=== PATIENT | male | born 1985 | race Caucasian/White ===

== ENCOUNTER 2016-09-28 10:21 | Emergency (ER) | payer SELFPAY ==
[2016-09-28] MEDS ORDERED: IBUPROFEN 800 MG TABLET PO ONE (10:32)
--- NOTE | 2016-09-28 10:32 | ER Document Report ---
ED Medical Screen (RME) - General Stated Complaint: TOOTH PAIN Time seen by provider: 10:30 Mode of Arrival: Ambulatory Information source: Patient Notes: 31-year-old male presents to ED for a toothache right lower jaw for the last 2 days to this #31. - HPI Onset: Other Onset/Duration: Gradual - 2 days Quality of pain: Achy, Throbbing Severity: Severe Pain Level: 5 Associated Symptoms: Other - Dental pain Exacerbated by: Food Relieved by: Denies Similar symptoms previously: Yes Recently seen / treated by doctor: No - Related Data Smoking: Less than 1 pack/day Frequency of alcohol use: Occasional Drug Abuse: None Physical Exam - Vital signs Vitals: Temp Pulse Resp BP Pulse Ox 98.4 F 118 H 18 140/62 H 96 09/28/16 10:09/28/16 10:09/28/16 10:09/28/16 10:09/28/16 10:26 Course - Vital Signs Vital signs: Temp Pulse Resp BP Pulse Ox 98.4 F 118 H 18 140/62 H 96 09/28/16 10:09/28/16 10:09/28/16 10:09/28/16 10:09/28/16 10:26
[2016-09-28] MEDS ORDERED: BUPIVACAINE HCL 0.5 % INJ/PF 30 ML SDV INJ ONE (10:45)
[2016-09-28] MEDS ORDERED: LIDOCAINE 1% INJ-PF (10 MG/ML) 30 ML SDV INJ ONE (10:45)
--- NOTE | 2016-09-28 10:50 | ER Document Report ---
[id number] Mode of Arrival: Ambulatory Information source: Patient Notes: 31-year-old male presents with complaints of dental pain and facial swelling. Patient notes that things been ongoing for 1 week, denies any fevers or chills admits to pain and chewing. Patient noticed swelling of his gums today. Denies any previous abscesses. Denies any known allergies TRAVEL OUTSIDE OF THE [place] IN LAST 30 DAYS: No - HPI Onset: Last week Onset/Duration: Persistent Quality of pain: Achy Severity: Mild Pain Level: 1 Associated symptoms: Other Exacerbated by: Denies Relieved by: Denies Similar symptoms previously: No Recently seen / treated by doctor: No - Related Data Allergies/Adverse Reactions: No Known Allergies Allergy (Verified 09/28/16 10:32) Past Medical History - General Information source: Patient - Social History Smoking Status: Current Every Day Smoker Cigarette use (# per day): Yes Chew tobacco use (# tins/day): Yes Smoking Education Provided: Yes - Patient counselled regarding cessation for 4 minutes Frequency of alcohol use: Occasional Drug Abuse: None Family History: Reviewed & Not Pertinent Patient has suicidal ideation: No Patient has homicidal ideation: No Renal/ Medical History: Denies: Hx Peritoneal Dialysis Review of Systems - Review of Systems Notes: REVIEW OF SYSTEMS: CONSTITUTIONAL : Denies fever, chills, or sweats. Denies recent illness. EENT: Admits to facial swelling dental pain CARDIOVASCULAR: Denies chest pain. Denies palpitations or racing or irregular heart beat. Denies ankle edema. RESPIRATORY: Denies cough, cold, or chest congestion. Denies shortness of breath, difficulty breathing, or wheezing. GASTROINTESTINAL: Denies abdominal pain or distention. Denies nausea, vomiting , or diarrhea. Denies blood in vomitus, stools, or per rectum. Denies black, tarry stools. Denies constipation. GENITOURINARY: Denies difficulty urinating, painful urination, burning, frequency, blood in urine, or discharge. MUSCULOSKELETAL: Denies back or neck pain or stiffness. Denies joint pain or swelling. SKIN: Denies rash, lesions or sores. HEMATOLOGIC : Denies easy bruising or bleeding. LYMPHATIC: Denies swollen, enlarged glands. NEUROLOGICAL: Denies confusion or altered mental status. Denies passing out or loss of consciousness. Denies dizziness or lightheadedness. Denies headache. Denies weakness or paralysis or loss of use of either side. Denies problems with gait or speech. Denies sensory loss, numbness, or tingling. Denies seizures. PSYCHIATRIC: Denies anxiety or stress. Denies depression, suicidal ideation, or homicidal ideation. ALL OTHER SYSTEMS REVIEWED AND NEGATIVE. Dictation was performed using [employer] voice recognition software PHYSICAL EXAMINATION: GENERAL: Well-appearing, well-nourished and in no acute distress. HEAD: Right inferior mandibular edema EYES: Pupils equal round extraocular movements intact, conjunctiva are normal. ENT: Poor dentition noted teeth #[id number], 28 is missing, there is edema fluctuant of both medial and lateral aspects of the gum around the area NECK: Normal range of motion LUNGS: No respiratory distress Musculoskeletal: Normal range of motion NEUROLOGICAL: Normal speech, normal gait. PSYCH: Normal mood, normal affect. SKIN: Warm, Dry, normal turgor, no rashes or lesions noted. Physical Exam - Vital signs Vitals: Temp Pulse Resp BP Pulse Ox 98.4 F 118 H 18 140/62 H 96 09/28/16 10:26 09/28/16 10:26 09/28/16 10:26 09/28/16 10:26 09/28/16 10:26 Course - Re-evaluation Re-evalutation: 09/28/16 10:49 After a dental block was performed area was incised and drained amount of pus was drained Patient will be placed on antibiotics and given follow-up with low cost dentistry After performing a Medical Screening Examination, I estimate there is LOW risk for a DEEP SPACE INFECTION (e.g., NEYDA'S ANGINA OR RETROPHARYNGEAL ABSCESS), MENINGITIS, INTRACRANIAL HEMORRHAGE, or AIRWAY COMPROMISE, thus I consider the discharge disposition reasonable. Also, there is no evidence or peritonitis, sepsis, or toxicity. The patient and I have discussed the diagnosis and risks, and we agree with discharging home with close follow-up with the understanding that symptoms and presentations can change. We also discussed returning to the Emergency Department immediately if new or worsening symptoms occur. We have discussed the symptoms which are most concerning (e.g., changing or worsening pain, trouble swallowing or breathing, neck stiffness or fever) that necessitate immediate return. 09/28/16 15:00 - Vital Signs Vital signs: Temp Pulse Resp BP Pulse Ox 98.4 F 120 H 18 130/75 H 97 09/28/16 10:26 09/28/16 11:54 09/28/16 11:54 09/28/16 11:54 09/28/16 11:54 Procedures - Incision and Drainage Right Lower Face Time completed: 10:50 Type: Simple Anesthetic type: 0.5% Bupivacaine mL's of anesthetic: 10 Blade size: 11 I&D procedure: Sterile dressing applied Incision Method: Incision made by scalpel Amount/type of drainage: moderate amount of pus - Additional Procedures inferior alveolar nerve block Time performed: 10:50 - using 10 cc of 0.5% sensorcaine with complete relief , no complication Discharge - Discharge Clinical Impression: Dental abscess, Encounter for smoking cessation counseling, dental pain Condition: Stable Disposition: HOME, SELF-CARE Instructions: Abscess ([facility]) Additional Instructions: Follow up with your dentist tomorrow for further care or return to the ED IMMEDIATELY if symptoms worsen or new concerns occur Prescriptions: Hydrocodone/Acetaminophen [[place] 5-325 mg Tablet] 1 tab PO Q6 #14 tablet Penicillin V Potassium [Penicillin Vk 500 mg Tablet] 500 mg PO Q6 #40 tablet
[2016-09-28 12:14] VITALS: BP 130/75
== END 2016-09-28 11:55 | disposition home or self-care (01) ==
LOC: ER 10:21
PROC: 3E0T3BZ Introduction of Anesthetic Agent into Peripheral Nerves and Plexi, Percutaneous Approach (ICD-10-PCS; principal; 2016-09-28)
PROC: 0H91XZZ Drainage of Face Skin, External Approach (ICD-10-PCS; 2016-09-28)
DX: K04.7 Periapical abscess without sinus (principal); K08.9 Disorder of teeth and supporting structures, unspecified; F17.210 Nicotine dependence, cigarettes, uncomplicated
CPT/HCPCS: 99282

== ENCOUNTER 2016-10-08 20:59 | Emergency (ER) | payer MEDICAID ==
--- NOTE | 2016-10-08 21:29 | ER Document Report ---
ED Medical Screen (RME) - General Stated Complaint: BACK PAIN Notes: Patient has chronic back pain for approximately one year I will this morning with a much more intense discomfort to the affected area. No new injury. I greeted and performed a rapid initial assessment of this patient. Comprehensive ED assessment and evaluation of the patient, analysis of test results and completion of the medical decision making process will be conducted by additional ED providers. TRAVEL OUTSIDE OF THE [place] IN LAST 30 DAYS: No - Related Data Allergies/Adverse Reactions: No Known Allergies Allergy (Verified 09/28/16 10:32) Past Medical History Renal/ Medical History: Denies: Hx Peritoneal Dialysis - Immunizations Hx Diphtheria, Pertussis, Tetanus Vaccination: Yes
[2016-10-08] MEDS ORDERED: OXYCODONE-ACETAMINOPHEN 5-325 MG TABLET PO ONE (23:37)
[2016-10-08] MEDS ORDERED: PREDNISONE 20 MG TABLET PO ONE (23:37)
--- NOTE | 2016-10-08 23:48 | ER Document Report ---
HPI - HPI Patient complains to provider of: lower back pain Pain Level: 5 Context: Patient is a 31-year-old male that comes emergency department for chief complaint of sharp right lower back pain with radiation down the back of the right leg. Patient states that he has had lower back pain before, he is even had MRIs of his back, he takes gabapentin and Flexeril. Patient denies any new injury, IV drug abuse, history of surgeries on the back, numbness, bowel or bladder incontinence. He denies any fever. Patient states pain was present when he woke this morning, he is unsure how he might have injured himself yesterday. Patient states he is new from [place], states that he is looking for a provider in this location. - DERM Skin Color: Normal Past Medical History - General Information source: Patient - Social History Smoking Status: Current Every Day Smoker Chew tobacco use (# tins/day): No Frequency of alcohol use: Rare Drug Abuse: None Lives with: Family Family History: Reviewed & Not Pertinent Patient has suicidal ideation: No Patient has homicidal ideation: No Renal/ Medical History: Denies: Hx Peritoneal Dialysis Musculoskeltal Medical History: Reports Hx Arthritis - Chronic lower back pain Surgical Hx: Negative - Immunizations Hx Diphtheria, Pertussis, Tetanus Vaccination: Yes Vertical Provider Document - CONSTITUTIONAL General Appearance: Mild Distress - Patient appears to be in some pain, Obese - Somewhat overweight - INFECTION CONTROL TRAVEL OUTSIDE OF THE [place] IN LAST 30 DAYS: No - HEENT HEENT: Atraumatic, Normal ENT Exam, Normocephalic - NECK Neck: Normal Inspection - RESPIRATORY Respiratory: Breath Sounds Normal, No Respiratory Distress O2 Sat by Pulse Oximetry: 96 - CARDIOVASCULAR Cardiovascular: Regular Rate, Regular Rhythm - GI/ABDOMEN Gastrointestinal: Abdomen Soft, Abdomen Non-Tender - BACK Back: negative: Normal Inspection - Normal midline exam of the cervical, thoracic, lumbar spine, no saddle anesthesia, paraspinal lumbar tenderness on the right side, positive straight leg raise on the right, normal strength and neurovascular exam of lower extremities otherwise - MUSCULOSKELETAL/EXTREMETIES Musculoskeletal/Extremeties: MAEW, FROM, Non-Tender Course - Re-evaluation Re-evalutation: Patient does appear to be in some pain, walks with a limp, grimaces with movement, has pain in the right mid back and right paralumbar musculature. Patient has MRIs with him but the discs do not have any reports. Lumbar x-ray with no space abnormality, no spondylolisthesis, no compression fracture. No acute findings. No concerning abnormalities. Patient initially tachycardic, this resolved after pain medication. Patient with positive straight leg raise on the right, no neurological deficits , no concerning reported symptoms. Treating for sciatica with prednisone and pain meds, referring to both primary care and pain management because of chronically recurring symptoms. Patient states understanding and agreement. - Vital Signs Vital signs: Temp Pulse Resp BP Pulse Ox 97.3 F 113 H 20 148/93 H 96 10/08/16 21:11 10/08/16 21:11 10/08/16 21:11 10/08/16 21:11 10/08/16 21:11 Discharge - Discharge Clinical Impression: Chronic lower back pain Qualifiers: Back pain laterality: right Sciatica presence: with sciatica Sciatica laterality: sciatica of right side Qualified Code(s): M54.41 - Lumbago with sciatica, right side Condition: Stable Disposition: HOME, SELF-CARE Instructions: Family Physicians / Practices Additional Instructions: New imaging shows no concerning loss of disc space, compression fractures, or malalignment. Physical exam and symptoms are most consistent with sciatica. Take the prednisone and pain medication as directed. Continue gabapentin and Flexeril. Follow-up with pain management for chronic lower back pain in addition to following up with primary care. Return to the emergency department for concerning or worsening symptoms including loss of bowel or bladder function, fever, loss of sensation, etc. Prescriptions: Oxycodone HCl/Acetaminophen [Percocet 5-325 mg Tablet] 1 - 2 tab PO Q4H PRN #15 tablet PRN Reason: Prednisone [Deltasone 10 mg Tablet] 10 mg PO ASDIR PRN #21 tablet PRN Reason: Referrals: [facility] [Provider Group] - Follow up in 1 week
[2016-10-09 00:14] VITALS: BP 132/90
== END 2016-10-09 00:13 | disposition home or self-care (01) ==
LOC: ER 20:59
DX: M54.41 Lumbago with sciatica, right side (principal); G89.29 Other chronic pain; Z79.899 Other long term (current) drug therapy; R00.0 Tachycardia, unspecified; E66.9 Obesity, unspecified; Z68.35 Body mass index [BMI] 35.0-35.9, adult; F17.200 Nicotine dependence, unspecified, uncomplicated
CPT/HCPCS: 99283; 72100; J7512

== ENCOUNTER 2018-06-14 17:11 | Emergency (ER) | payer MEDICAID ==
[2018-06-14] MEDS ORDERED: NORMAL SALINE 500 ML IV ONE (17:48)
[2018-06-14] MEDS ORDERED: FAMOTIDINE INJ/PF 20 MG/2 ML SDV IV ONE (17:49)
--- NOTE | 2018-06-14 17:52 | ER Document Report ---
ED General - General Chief Complaint: Allergic Reaction Stated Complaint: POSSIBLE ALLERGIC REACTION Time Seen by Provider: 06/14/18 17:27 Mode of Arrival: Ambulatory Information source: Patient Notes: This is a 33-year-old man with a history of a recent allergic type reaction 2 weeks ago at [facility] who presents to the emergency room with symptoms of allergic reaction again. Patient states that he had eaten a chicken sandwich (ayla, [place]) half an hour prior to the event. He was at his house when he sprayed for breeze into the air and shortly thereafter started getting red blotchy swelling to the right cheek and then started getting shortness of breath and chest heaviness. The patient's drove the patient to [facility] where he was given epinephrine, Solu-Medrol and Benadryl. Patient states that immediately after getting Benadryl, the shortness of breath and heaviness improved dramatically. EMS arrived and gave the patient another epi with [place] treatment, Pepcid and 500 cc bolus of saline. In the emergency room, the patient states the rash to the face and swelling to the face is much improved. He states that the itching to the skin is still occurring. He does state that he feels a little jittery. He denies any recent exposure to chemicals/soaps which are different. The event at [facility] 2 weeks ago was similar and he was discharged with a 5- day history of prednisone and Benadryl. Patient denies any physical activity during these events. He denies any known triggers. He denies any family history for allergic type symptoms. TRAVEL OUTSIDE OF THE [place] IN LAST 30 DAYS: No - HPI Onset: Just prior to arrival Onset/Duration: Sudden Quality of pain: No pain Severity: None Pain Level: Denies Associated symptoms: Chest pain, Shortness of breath, Other - Swelling, hives. denies: Fever Exacerbated by: Denies Relieved by: Denies Similar symptoms previously: Yes Recently seen / treated by doctor: Yes - Related Data Allergies/Adverse Reactions: No Known Allergies Allergy (Verified 06/14/18 17:21) Past Medical History - General Information source: Patient - Social History Smoking Status: Never Smoker Cigarette use (# per day): No Chew tobacco use (# tins/day): No Frequency of alcohol use: Social Drug Abuse: None Lives with: Spouse/Significant other Family History: Reviewed & Not Pertinent Patient has suicidal ideation: No Patient has homicidal ideation: No - Past Medical History Cardiac Medical History: Reports: None Pulmonary Medical History: Reports: None EENT Medical History: Reports: None Neurological Medical History: Reports: None Endocrine Medical History: Reports: None Renal/ Medical History: Reports: None. Denies: Hx Peritoneal Dialysis Malignancy Medical History: Reports None GI Medical History: Reports: None Musculoskeletal Medical History: Reports Hx Arthritis - Chronic lower back pain Skin Medical History: Reports None Psychiatric Medical History: Reports: None Traumatic Medical History: Reports: None Infectious Medical History: Reports: None Past Surgical History: Reports: Other - Back surgery - Immunizations Hx Diphtheria, Pertussis, Tetanus Vaccination: Yes Review of Systems - Review of Systems Constitutional: denies: Chills, Fever EENT: See HPI Cardiovascular: No symptoms reported Respiratory: See HPI Gastrointestinal: No symptoms reported Genitourinary: No symptoms reported Male Genitourinary: No symptoms reported Musculoskeletal: No symptoms reported Skin: No symptoms reported Hematologic/Lymphatic: No symptoms reported Neurological/Psychological: No symptoms reported Physical Exam - Vital signs Vitals: Resp 17 06/14/18 17:22 Notes: Physical exam: GENERAL: Patient states she is feeling much better as far as the shortness of breath/chest pain after getting the IM appendectomy in route. Still complains of diffuse itching and redness to the extremities. HEAD: Atraumatic, normocephalic. EYES: Pupils equal round and reactive to light, extraocular movements intact, sclera anicteric, conjunctiva are normal. ENT: TMs normal, nares patent, oropharynx clear without exudates. Moist mucous membranes. NECK: Normal range of motion, supple without obvious mass or JVD. LUNGS: Breath sounds clear to auscultation bilaterally and equal. No wheezes rales or rhonchi. HEART: Regular rate and rhythm without murmurs, rubs or gallops. ABDOMEN: Soft, normoactive bowel sounds. No tenderness to palpation. No guarding, no rebound. No masses appreciated. EXTREMITIES: Normal range of motion, no pitting or edema. No clubbing or cyanosis. NEUROLOGICAL: Cranial nerves II through XII grossly intact. Normal speech, moving all extremities. PSYCH: Normal mood, normal affect. SKIN: Does have evidence of hives diffusely. He does have itching. He does have an area of mild folliculitis along the left tibia. There is no obvious abscess at this point. There is no pus drainage. He does have a history of MRSA in the past. He states he gets swelling of the hair follicles often. Course - Re-evaluation Re-evalutation: 06/14/18 19:46 Patient is currently stable and doing well. He is currently receiving his second gram of magnesium. 06/14/18 23:09 Patient's issues are as follows: Allergic reaction: He did respond to IM epinephrine As well as IV steroids, Pepcid, magnesium. The plan will be discharging him on a longer taper given that he received a 5- day taper last time and had symptoms starting soon after. I have encouraged the patient to write a diary regarding how much itching and rash she has each day and what foods he eats and what activities he is doing. He needs to follow-up with an net manager and I gave him a referral number. I have discharged him with a EpiPen along with a longer prednisone taper, Pepcid , Claritin. He will take Benadryl as needed [id number]. Elevated LFTs. He does drink regularly (2 beers a night). I have advised him to stop the alcohol for 2 weeks and have repeat testing. I gave him a copy of today's results and I gave him a referral to the [facility]. Borderline diabetes: The patient needs to be on steroids. I believe that his mild elevation may be due to the steroids. I have advised him not to indulge too much on the sugar and to have it retested. History of MRSA with mild folliculitis: I have advised him to use Hibiclens soap. I am hesitant to prescribe an antibiotic (i.e. Bactrim) at this time given the fact that he is developing such a severe allergic reaction to something and I do not want a body the picture clinically by adding a sulfur medicine or other antibiotic for that reason. - Vital Signs Vital signs: Temp Pulse Resp BP Pulse Ox 21 H 134/90 H 95 06/14/18 22:00 06/14/18 21:00 06/14/18 22:00 - Laboratory Result Diagrams: 06/14/18 20:40 06/14/18 20:40 Laboratory results interpreted by me: 06/14/18 06/14/18 20:40 20:40 WBC 10.6 H Seg Neutrophils % 89.8 H Lymphocytes % 7.3 L Monocytes % 2.3 L Absolute Neutrophils 9.5 H Sodium 136.9 L Glucose 260 H Direct Bilirubin 0.6 H AST 204 H ALT 290 H Alkaline Phosphatase 213 H - EKG Interpretation by Me Rate: Normal Rhythm: NSR - Normal sinus rhythm with a ventricular rate of 97, no acute ST-T wave changes Discharge - Discharge Clinical Impression: Acute allergic reaction Condition: Stable Disposition: HOME, SELF-CARE Additional Instructions: Acute allergic reaction: I want you to take the prednisone as the following: Take 4 tablets for 3 days, then 3 tablets for 3 days, then 2 tablets for 3 days , then 1 tablet for 3 days, then half tablet for 4 days. Take Pepcid daily Take Claritin daily Take Benadryl if the itching is bothering you or you noticing some swelling. Take epinephrine autoinjector for any shortness of breath or feelings like her airway is getting closed off work the ability to pass out. If you use the autoinjector, return to the ER at once. Followup with an net manager for allergy testing: [facility]: Address: [address] [place] [address] Elevated sugar: Your sugar was elevated today. This is nonfasting so it is not as accurate. But it was elevated just the same. I would watch the desserts and sugar intake. You are on steroids and this could be the cause of the elevated sugar. Mildly elevated liver enzyme: 2 out of the 4 enzymes that you have was mildly elevated. This could be a result of the medicine. However I would avoid any alcohol for the next 2 weeks until you are gradually weaned off the medicine. I would keep a copy of today's tests so that you are ever evaluated again, these liver enzymes can be repeated. As far as low cost healthcare: The [facility] offers health care to reduce cost. The [address] [address] As far as the skin lesions: History of MRSA I want you to wash your extremities, trunk and groin and under the arms with Hibiclens soap (chlorhexidine) in the shower once daily for a week. Prescriptions: Epinephrine [Epipen 2-Lico] 0.3 mg IM ONCE PRN #2 ml PRN Reason: Famotidine [Pepcid 20 mg Tablet] 20 mg PO BID #12 tablet Loratadine [Claritin 10 mg Tablet] 10 mg PO DAILY #30 tablet Prednisone 10 mg PO DAILY #27 tablet
[2018-06-14] MEDS: MAGNESIUM SULFATE/D5W 1 GM/100 ML RTUPB IV SCH ×2 (17:59→18:44)
[2018-06-14] MEDS ORDERED: DIPHENHYDRAMINE HCL 50 MG/ML VIAL IV ONE (20:03)
[2018-06-14 20:53] LABS: ABSOLUTE LYMPHOCYTES (AUTO) 0.8 10^3/uL (0.5-4.7); ABSOLUTE MONOCYTES (AUTO) 0.2 10^3/uL (0.1-1.4); ABSOLUTE NEUT (AUTO) 9.5 10^3/uL (1.7-8.2); BASOPHILS % (AUTO) 0.4 % (0-2); EOSINOPHILS % (AUTO) 0.2 % (0-6); HEMATOCRIT 45.5 % (37.9-51.0); HEMOGLOBIN 15.6 g/dL (13.5-17.0); LYMPHOCYTES % (AUTO) 7.3 % (13-45); MEAN CORPUSCULAR HEMOGLOBIN 29.7 pg (27.0-33.4); MEAN CORPUSCULAR HGB CONC 34.3 g/dL (32.0-36.0); MEAN CORPUSCULAR VOLUME 87 fl (80-97); MONOCYTES % (AUTO) 2.3 % (3-13); PLATELET COUNT 218 10^3/uL (150-450); RED BLOOD COUNT 5.26 10^6/uL (4.35-5.55); SEGMENTED NEUTROPHILS % (AUTO) 89.8 % (42-78); TOTAL CELLS COUNTED % (AUTO) 100 %; WHITE BLOOD COUNT 10.6 10^3/uL (4.0-10.5)
[2018-06-14 21:25] LABS: ALANINE AMINOTRANSFERASE 290 U/L (21-72); ALBUMIN 3.7 g/dL (3.5-5.0); ALKALINE PHOSPHATASE 213 U/L (38-126); ANION GAP 11 (5-19); ASPARTATE AMINO TRANSFERASE 204 U/L (17-59); BILIRUBIN,DIRECT 0.6 mg/dL (0.0-0.4); BILIRUBIN,TOTAL 0.8 mg/dL (0.2-1.3); BLOOD UREA NITROGEN 18 mg/dL (7-20); CALCIUM 8.4 mg/dL (8.4-10.2); CARBON DIOXIDE 24 mmol/L (22-30); CHLORIDE 102 mmol/L (98-107); GLUCOSE 260 mg/dL (75-110); POTASSIUM 4.3 mmol/L (3.6-5.0); SODIUM 136.9 mmol/L (137-145); TOTAL PROTEIN 6.9 g/dL (6.3-8.2)
[2018-06-14 23:31] VITALS: BP 130/76
--- NOTE | 2018-06-15 19:26 | EKG REPORT ---
SEVERITY:- NORMAL ECG - SINUS RHYTHM : Confirmed by: Mariana Braxton 15-Jun-2018 19:25:22
== END 2018-06-14 23:11 | disposition home or self-care (01) ==
LOC: ER 17:11
DX: L50.0 Allergic urticaria (principal); R06.02 Shortness of breath; R07.89 Other chest pain; R79.89 Other specified abnormal findings of blood chemistry; R73.03 Prediabetes; L73.9 Follicular disorder, unspecified; Z86.14 Personal history of Methicillin resistant Staphylococcus aureus infection
CPT/HCPCS: 93005; 99284; 96365; 96366; 36415; 85025; 80053; 93010; J3475; J7040

== ENCOUNTER 2019-02-16 13:51 | Emergency (ER) | payer MEDICAID ==
--- NOTE | 2019-02-16 14:44 | ER Document Report ---
ED Medical Screen (RME) - General Chief Complaint: Chest Pain Stated Complaint: CHEST PAIN Time Seen by Provider: 02/16/19 14:40 TRAVEL OUTSIDE OF THE [place] IN LAST 30 DAYS: No - HPI Notes: 02/16/19 14:43 Patient is a 34-year-old male who presents complaining of intermittent chest pain for 1 month and with nasal congestion and dry cough that began a couple weeks ago. Pain does not radiate. He is able to eat and drink without difficulty. He is urinating normally. Denies drug allergies. No history of diabetes, CAD, AL, PE. Denies FERRARI, fever, neck pain, URI, CP, SOB, Abd pain, dysuria, back pain, or rash. I have treated and performed a rapid initial assessment of this patient. A comprehensive ED assessment and evaluation of the patient, analysis of test results and completion of medical decision making process will be conducted by additional ED providers. PHYSICAL EXAMINATION: GENERAL: Well-appearing, well-nourished and in no acute distress. A&Ox4. Answers questions appropriately. LUNGS: Breath sounds clear to auscultation bilaterally and equal. No wheezes rales or rhonchi. HEART: Regular rate and rhythm without murmurs, rubs, gallops. Extremities: No cyanosis, clubbing, or edema b/l. NEUROLOGICAL: Normal speech, normal gait. PSYCH: Normal mood, normal affect. - Related Data Allergies/Adverse Reactions: No Known Allergies Allergy (Verified 02/16/19 13:52) Past Medical History - Social History Frequency of alcohol use: None Drug Abuse: None Endocrine Medical History: Reports: Hx Diabetes Mellitus Type 2 Renal/ Medical History: Denies: Hx Peritoneal Dialysis Musculoskeltal Medical History: Reports Hx Arthritis - Chronic lower back pain Past Surgical History: Reports: Hx Orthopedic Surgery - BACK SURGERY 11/24, 04/26, Other - Back surgery - Immunizations Hx Diphtheria, Pertussis, Tetanus Vaccination: Yes Physical Exam - Vital signs Vitals: Temp Pulse Resp BP Pulse Ox 98.5 F 70 20 157/81 H 98 02/16/19 14:13 02/16/19 14:13 02/16/19 14:13 02/16/19 14:13 02/16/19 14:13 Course - Vital Signs Vital signs: Temp Pulse Resp BP Pulse Ox 98.5 F 70 20 157/81 H 98 02/16/19 14:13 02/16/19 14:13 02/16/19 14:13 02/16/19 14:13 02/16/19 14:13
--- NOTE | 2019-02-16 15:34 | RADIOLOGY REPORT (SQ) ---
EXAM DESCRIPTION: CHEST SINGLE VIEW COMPLETED DATE/TIME: 02/16/2019 3:26 pm REASON FOR STUDY: CP, cough COMPARISON: None. NUMBER OF VIEWS: One view. TECHNIQUE: Single frontal radiographic view of the chest acquired. LIMITATIONS: None. FINDINGS: LUNGS AND PLEURA: Peribronchial cuffing and interstitial changes. No consolidation, pneumo thorax or effusion. MEDIASTINUM AND HILAR STRUCTURES: No masses. Contour normal. HEART AND VASCULAR STRUCTURES: Heart normal in size. Normal vasculature. BONES: No acute findings. HARDWARE: None in the chest. OTHER: No other significant finding. IMPRESSION: REACTIVE AIRWAY DISEASE VERSUS VIRAL SYNDROME. NO CONSOLIDATION. TECHNICAL DOCUMENTATION: JOB ID: [id number] [id number] 2010 [employer]- All Rights Reserved Reading location - IP/workstation name: [employer]
[2019-02-16 15:38] LABS: ABSOLUTE BASOPHILS # (AUTO) 0.1 10^3/uL (0.0-0.2); ABSOLUTE EOSINOPHILS # (AUTO) 0.3 10^3/uL (0.0-0.6); ABSOLUTE LYMPHOCYTES (AUTO) 1.7 10^3/uL (0.5-4.7); ABSOLUTE MONOCYTES (AUTO) 0.5 10^3/uL (0.1-1.4); BASOPHILS % (AUTO) 1.4 % (0-2); EOSINOPHILS % (AUTO) 4.5 % (0-6); HEMATOCRIT 43.2 % (37.9-51.0); HEMOGLOBIN 14.8 g/dL (13.5-17.0); LYMPHOCYTES % (AUTO) 25.7 % (13-45); MEAN CORPUSCULAR HEMOGLOBIN 29.9 pg (27.0-33.4); MEAN CORPUSCULAR HGB CONC 34.2 g/dL (32.0-36.0); MEAN CORPUSCULAR VOLUME 88 fl (80-97); MONOCYTES % (AUTO) 8.3 % (3-13); PLATELET COUNT 187 10^3/uL (150-450); RED BLOOD COUNT 4.94 10^6/uL (4.35-5.55); RED CELL DISTRIBUTION WIDTH 13.6 % (11.5-14.0); SEGMENTED NEUTROPHILS % (AUTO) 60.1 % (42-78); TOTAL CELLS COUNTED % (AUTO) 100 %; WHITE BLOOD COUNT 6.6 10^3/uL (4.0-10.5)
[2019-02-16 15:56] LABS: ALBUMIN 4.2 g/dL (3.5-5.0); ALKALINE PHOSPHATASE 251 U/L (38-126); ANION GAP 13 (5-19); ASPARTATE AMINO TRANSFERASE 149 U/L (17-59); BILIRUBIN,DIRECT 0.5 mg/dL (0.0-0.4); BILIRUBIN,TOTAL 0.6 mg/dL (0.2-1.3); BLOOD UREA NITROGEN 14 mg/dL (7-20); CALCIUM 9.9 mg/dL (8.4-10.2); CARBON DIOXIDE 24 mmol/L (22-30); CHLORIDE 105 mmol/L (98-107); GLUCOSE 206 mg/dL (75-110); POTASSIUM 4.1 mmol/L (3.6-5.0); SODIUM 141.6 mmol/L (137-145); TOTAL PROTEIN 7.2 g/dL (6.3-8.2)
[2019-02-16 15:58] LABS: ALANINE AMINOTRANSFERASE 189 U/L (21-72)
--- NOTE | 2019-02-16 15:58 | EKG REPORT ---
SEVERITY:- NORMAL ECG - SINUS RHYTHM : Confirmed by: Thomas Guerrero MD 16-Feb-2019 15:57:47
--- NOTE | 2019-02-16 16:11 | ER Document Report ---
ED General - General Chief Complaint: Chest Pain Stated Complaint: CHEST PAIN Time Seen by Provider: 02/16/19 14:40 Mode of Arrival: Ambulatory Information source: Patient TRAVEL OUTSIDE OF THE [place] IN LAST 30 DAYS: No - HPI Patient complains to provider of: Chest pain, cough, chills. Onset: Other - Chest pain for couple months, head pressure sinus congestion and chills for the past week Onset/Duration: Persistent Quality of pain: Pressure Severity: Moderate Pain Level: 3 Associated symptoms: None Exacerbated by: Denies Relieved by: Denies Similar symptoms previously: No Recently seen / treated by doctor: No Notes: 34-year-old male coming in today with midsternal nonradiating chest pressure for a couple months. Also having some sinus congestion and slight cou gh for the past week. Having some chills. No fevers. No nausea or vomiting. Patient has history of type 2 diabetes, he is a smoker. Does not have any family history of heart disease. He has elevated blood pressure here but does not have a history of hypertension. - Related Data Allergies/Adverse Reactions: No Known Allergies Allergy (Verified 02/16/19 13:52) Past Medical History - General Information source: Patient - Social History Smoking Status: Current Every Day Smoker Frequency of alcohol use: None Drug Abuse: None Family History: Reviewed & Not Pertinent Patient has suicidal ideation: No Patient has homicidal ideation: No Endocrine Medical History: Reports: Hx Diabetes Mellitus Type 2 Renal/ Medical History: Denies: Hx Peritoneal Dialysis Musculoskeletal Medical History: Reports Hx Arthritis - Chronic lower back pain Past Surgical History: Reports: Hx Orthopedic Surgery - BACK SURGERY 11/24, 04/10 7, Other - Back surgery - Immunizations Hx Diphtheria, Pertussis, Tetanus Vaccination: Yes Review of Systems - Review of Systems Notes: Constitutional: No fevers. No chills. EENT: No eye redness. No eye pain. No ear pain. No sore throat. Positive for sinus congestion/discomfort Cardiovascular: Positive for chest pain, negative for palpitations Respiratory: Positive for cough. No shortness of breath. No respiratory distress. Gastrointestinal: No abdominal pain. No nausea, vomiting, or diarrhea. Genitourinary: Atraumatic. No lesions. No pain. No discharge. Musculoskeletal: Atraumatic. No swelling. No deformities. Skin: No rash or lesions. Lymphatic: No swollen lymph nodes. Neurologic: No headache. No syncope. Psychiatric: No suicidal or homicidal ideation. Physical Exam - Vital signs Vitals: Temp Pulse Resp BP Pulse Ox 98.5 F 70 20 157/81 H 98 02/16/19 14:13 02/16/19 14:13 02/16/19 14:13 02/16/19 14:13 02/16/19 14:13 - Notes Notes: General: Well-developed, well-nourished. In no acute distress. Non-toxic appearing. Cardiac: Well-perfused. Regular rate and rhythm. No murmurs, rubs, or gallops. Pulmonary: No respiratory distress. No cyanosis. Bilateral lung fiels are clear to auscultation. Abdominal: Non-distended. Non-rigid. Bowels sounds are present in all four quadrants. No guarding or rebound. HEENT: Head is atraumatic. Conjunctivae not reddened. No tearing. PERRL. EOMI. Orbits atraumatic. No periorbital swelling or erythema. Oropharynx is without erythema, swelling, or exudates. Neck: Supple. No adenopathy. No meningismus. Dermatologic: Warm with good turgor. No rash. Atraumatic. Chest: Midsternal tenderness to deep palpation. Musculoskeletal: Moves all extremities well. No range of motion deficits. no muscular or joint tenderness. No paraspinal muscle tenderness. no midline spinal tenderness or step-off. Genitourinary: Examination deferred Neurologic: No gross neurologic deficits. Psychiatric: Normal mood. Course - Re-evaluation Re-evalutation: 02/16/19 16:10 Heart score of 2 if I count hypertension as a risk factor. Chest pain chest pain is reproducible. We will see what his troponin does. His symptoms have been going on for a long time. I would expect there to be elevation in the troponin on the first round. I do not think there is anything different about this discomfort for the past couple of months. If all of his labs are normal, he will probably be going home to follow-up outpatient for stress test. 02/16/19 16:36 Troponin is negative. EKG and chest x-ray also look good. Patient has a heart score of 2. He is a good candidate for outpatient follow-up for stress test with his primary care doctor. He is also got some upper respiratory symptoms which I will treat with Bromfed-DM. He is told to return if his chest pain gets worse but he will benefit from having an outpatient stress test done if this c hest pain persists. 02/16/19 16:38 Patient's AST and ALT are both elevated. He acknowledges this. He has a history of heavy alcohol drinking. According to the patient, he is drinking less than before - Vital Signs Vital signs: Temp Pulse Resp BP Pulse Ox 98.5 F 70 20 157/81 H 98 02/16/19 14:13 02/16/19 14:13 02/16/19 14:13 02/16/19 14:13 02/16/19 14:13 - Laboratory Result Diagrams: 02/16/19 15:19 02/16/19 15:19 Laboratory results interpreted by me: 02/16/19 15:19 Glucose 206 H Direct Bilirubin 0.5 H AST 149 H ALT 189 H Alkaline Phosphatase 251 H - EKG Interpretation by Ne EKG shows normal: Sinus rhythm, [place], Intervals, QRS Complexes, ST-T Waves Discharge - Discharge Clinical Impression: Elevated liver function tests Chest pain Qualifiers: Chest pain type: unspecified Qualified Code(s): R07.9 - Chest pain, unspecified Upper respiratory infection Qualifiers: URI type: unspecified URI Qualified Code(s): J06.9 - Acute upper respiratory infection, unspecified Condition: Good Disposition: HOME, SELF-CARE Instructions: Chest Pain of Unclear Cause ([facility]), Chest Wall Pain ([facility]) Additional Instructions: Please call your doctor tomorrow morning to set up an appointment to discuss his chest pain further. Use the cough and cold remedy for your sinus pressure and congestion. Prescriptions: Brompheniramine/Pseudoephed/Dm [Bromfed Dm Cough Syrup] 5 ml PO Q4HP PRN #120 ml PRN Reason: Forms: Elevated Blood Pressure, Smoking Cessation Education Referrals: PRIMARY CARE DOCTOR, YOUR [Other] - Follow up tomorrow
[2019-02-16 16:50] VITALS: BP 125/80
== END 2019-02-16 16:50 | disposition home or self-care (01) ==
LOC: ER 13:51
DX: R07.89 Other chest pain (principal); J06.9 Acute upper respiratory infection, unspecified; R74.0 Nonspecific elevation of levels of transaminase and lactic acid dehydrogenase [LDH]; R05 Cough; R68.83 Chills (without fever); R09.81 Nasal congestion; E11.9 Type 2 diabetes mellitus without complications; R03.0 Elevated blood-pressure reading, without diagnosis of hypertension; F17.200 Nicotine dependence, unspecified, uncomplicated
CPT/HCPCS: 36415; 71045; 80053; 84484; 85025; 93005; 93010; 99284